=== PATIENT | female | born 1955 | race Caucasian/White ===

== ENCOUNTER 2016-11-13 13:31 | Emergency (ER) | payer OTHER ==
[~2016-11-13] VITALS: Ht 160 cm; Wt 71.7 kg
[~2016-11-13 13:31] MED LIST: ADDERALL 10 MG10 MG PO; AMPHETAMINE SAL10 MG PO; ASPIRIN EC81 M1 PO; ASPIRIN325 PO; ASPIRIN81 M2 PO; ATIVAN0.5 M1 PO; ATIVAN1 MG PO; CIPROFLOXACIN500 M1 PO; CLONAZEPAM; CLONAZEPAM 0.50.5 M1 PO; CLONAZEPAM 1 MG1 M1 PO; COLACE100 MG PO; COUMADIN 1MG TAB1 M1 PO; CRESTOR; CRESTOR20 MG PO; CYMBALTA60 MG PO; FLAGYL500 MG PO; FLEET ENEMA118 ML RC; FLEXERIL PO; KLONOPIN0.5 MG PO; LOVENOX80 MG/0.8 SQ; LYRICA225 MG PO; METHOTREXATE; METHOTREXATE 22.5 M1 PO; MOM OR; NAPROSYN500 MG PO; NORCO; OXYCODONE; OXYCODONE HCL15 MG PO; PAROXETINE HCL40 MG PO; PAXIL10 MG PO; PERCOCET 10-321 EACH PO; PREDNISONE 20 M20 MG PO; PREDNISONE 5 MG5 M1 PO; PROTONIX40 M1 PO; TRAMADOL 50 MG50 MG PO; VITAMIN D-32000 UNIT PO; VITAMIN D-40400 UNIT PO; ZOFRAN ODT4 MG PO
[2016-11-13 13:53] LABS: ABSOLUTE NEUTROPHILS 4.4 thou/uL (1.4-8.2); BASOPHILS 0.6 % (0.0-2.0); EOSINOPHILS 0.5 % (0.0-3.0); HEMATOCRIT 44.3 % (37.0-47.0); HEMOGLOBIN 15.1 gm/dL (12.0-15.0); LYMPHOCYTES 38.9 % (24.0-44.0); MANUAL DIFF NO; MCH 32.5 pg (26.0-34.0); MCHC 34.2 g/dL (28.0-37.0); MCV 95.1 fL (80.0-100.0); MONOCYTES 4.7 % (1.0-8.0); PLATELET COUNT 264 thou/uL (150-400); POLYS 55.3 % (36.0-66.0); RBC 4.66 mil/uL (4.20-5.00); RDW 13.3 % (10.5-14.5)
[2016-11-13 14:01] LABS: CALCIUM 9.4 mg/dL (8.5-10.1); CREATININE 0.8 mg/dL (0.6-1.0); POTASSIUM 3.9 mmol/L (3.5-5.1)
[2016-11-13] MEDS ORDERED: NORCO 10-325 T1 EACH PO (14:01)
[2016-11-13] MEDS ORDERED: ZOLOFT50 MG PO (14:02)
[2016-11-13 14:06] LABS: TOTAL BILIRUBIN 0.5 mg/dL (<0.1-1.0); TOTAL PROTEIN 7.9 g/dL (6.4-8.2)
[2016-11-13 14:15] LABS: URINE BLOOD 1+ (Negative); URINE COLOR YELLOW; URINE GLUCOSE-RANDOM* NEGATIVE (Negative); URINE KETONES 1+ (Negative); URINE NITRITE NEGATIVE (Negative); URINE PROTEIN (DIPSTICK) TRACE (Negative); URINE SPECIFIC GRAVITY >= 1.030 (1.003-1.035); URINE UROBILINOGEN 0.2 E.U./dl (0.2-1.0)
[2016-11-13 14:17] LABS: URINE BILIRUBIN NEGATIVE (Negative)
[2016-11-13 14:19] LABS: BACTERIA >30 Many /HPF (None Seen); CASTS None Seen /LPF (None Seen); CRYSTALS None Seen /LPF (None Seen); SQUAMOUS 4-10 Moderate /LPF (0-3); URINE RBC 0-2 Rare /HPF (0-2); URINE WBC None Seen /HPF (0-5)
[2016-11-13] MEDS ORDERED: CIPRO500 MG PO (14:35)
[2016-11-13] MEDS ORDERED: FLAGYL500 MG PO (14:35)
[2016-11-13] MEDS ORDERED: PHENERGAN 25 MG25 M1 PO (14:35)
== END 2016-11-13 14:56 | disposition home or self-care (01) ==
LOC: ER 13:31
PROVIDERS: Physician Assistant
DX: K57.92 Diverticulitis of intestine, part unspecified, without perforation or abscess without bleeding (principal); M79.7 Fibromyalgia; F41.9 Anxiety disorder, unspecified; M06.9 Rheumatoid arthritis, unspecified; F17.210 Nicotine dependence, cigarettes, uncomplicated; Z90.49 Acquired absence of other specified parts of digestive tract; Z90.710 Acquired absence of both cervix and uterus; Z85.828 Personal history of other malignant neoplasm of skin; Z88.0 Allergy status to penicillin; Z88.2 Allergy status to sulfonamides; Z88.6 Allergy status to analgesic agent; Z88.8 Allergy status to other drugs, medicaments and biological substances

== ENCOUNTER 2018-11-15 12:51 | Emergency (ER) | payer OTHER ==
[~2018-11-15] VITALS: Ht 160 cm; Wt 74.8 kg
[~2018-11-15 12:51] MED LIST changes: +CIPRO500 MG PO; +NORCO 10-325 T1 EACH PO; +PHENERGAN 25 MG25 M1 PO; +ZOLOFT50 MG PO
[2018-11-15 13:52] LABS: URINE BILIRUBIN NEGATIVE (Negative); URINE BLOOD TRACE (Negative); URINE COLOR YELLOW; URINE GLUCOSE-RANDOM* NEGATIVE (Negative); URINE KETONES NEGATIVE (Negative); URINE LEUKOCYTES-REFLEX TRACE (Negative); URINE NITRITE-REFLEX NEGATIVE (Negative); URINE PROTEIN (DIPSTICK) TRACE (Negative); URINE UROBILINOGEN 0.2 E.U./dl (0.2-1.0)
[2018-11-15] MEDS ORDERED: PERCOCET 10-321 EACH PO (13:53)
[2018-11-15 13:54] LABS: URINE CLARITY SL HAZY
[2018-11-15] MEDS ORDERED: PAXIL10 MG PO (13:54)
[2018-11-15] MEDS ORDERED: ADDERALL 10 MG10 MG PO (13:55)
[2018-11-15] MEDS ORDERED: UNICOMPLEX M TA1 TA1 PO (13:55)
--- NOTE | 2018-11-15 15:58 | EKG ---
[place] [address] [employer] [place] [address] ELECTROCARDIOGRAM REPORT Name: RAFAEL MONTGOMERY Room #: REG [facility]#: [id number] ������������������ Admission: 11/15/18 ������������������ Attend Phys: Discharge: ������������������ Date of : 55 Report #: [id number] ����������������������������������������������������������������� [id number] THIS REPORT FOR: //name// [facility] ED Test Date: 2018-11-15 Test Time: 13:43:03 Pat Name: RAFAEL MONTGOMERY Department: Room: Gender: F [employer]: [place] : 1955 Requested By: Lonny Neal Order Number: [id number] MD: Yury Mercado Measurements Intervals [place] Rate: 67 P: 55 FL: 145 QRS: 21 QRSD: 91 T: 35 QT: 394 QTc: 416 Interpretive Statements Sinus rhythm Abnormal R-wave progression, early transition Borderline T abnormalities, anterior leads Compared to ECG 03/29/2016 03:21:56 No significant changes Electronically Signed On 11-15-2018 15:58:32 CDT by Yury Mercado [email or web address] ��������������������������������������������� <ELECTRONICALLY SIGNED> ���������������������������������������� By: Yury Mercado MD ��������������������������������������������� 11/15/18 1558 1343 1343 Yury Mercado MD /AVERY
[2018-11-15 16:41] LABS: ABSOLUTE NEUTROPHILS 3.1 thou/uL (1.4-8.2); BASOPHILS 0.5 % (0.0-2.0); EOSINOPHILS 0.8 % (0.0-3.0); HEMATOCRIT 35.9 % (37.0-47.0); HEMOGLOBIN 12.1 gm/dL (12.0-15.0); LYMPHOCYTES 43.6 % (24.0-44.0); MCH 31.6 pg (26.0-34.0); MCHC 33.8 g/dL (28.0-37.0); MCV 93.3 fL (80.0-100.0); MONOCYTES 5.5 % (1.0-8.0); PLATELET COUNT 222 thou/uL (150-400); POLYS 49.6 % (36.0-66.0); RBC 3.84 mil/uL (4.20-5.00); WBC 6.2 thou/uL (4.0-11.0)
[2018-11-15 16:54] LABS: APTT 26.6 Seconds (24.5-32.8); PROTIME 9.9 Seconds (9.3-11.4)
[2018-11-15 17:03] LABS: ANION GAP 6 mmol/L (7-16); BUN 10 mg/dL (7-18); CALCIUM 8.8 mg/dL (8.5-10.1); CHLORIDE 109 mmol/L (98-107); CO2 31 mmol/L (21-32); CREATININE 0.6 mg/dL (0.6-1.0); GLUCOSE 112 mg/dL (74-106); POTASSIUM 3.7 mmol/L (3.5-5.1); SGOT 22 U/L (15-37); SGPT 20 U/L (30-65); SODIUM 146 mmol/L (136-145); TOTAL BILIRUBIN 0.2 mg/dL (<0.1-1.0); TOTAL PROTEIN 6.1 g/dL (6.4-8.2); TROPONIN-I <0.06 ng/mL (<0.06)
[2018-11-15 18:02] VITALS: BP 109/61
== END 2018-11-15 18:15 | disposition left against medical advice (07) ==
LOC: ER 12:51
PROVIDERS: Emergency Medicine; Physician Assistant
DX: R60.0 Localized edema (principal); F17.210 Nicotine dependence, cigarettes, uncomplicated; M06.9 Rheumatoid arthritis, unspecified; M79.7 Fibromyalgia; F41.9 Anxiety disorder, unspecified; Z88.0 Allergy status to penicillin; Z88.2 Allergy status to sulfonamides; Z88.8 Allergy status to other drugs, medicaments and biological substances; Z90.49 Acquired absence of other specified parts of digestive tract; Z90.710 Acquired absence of both cervix and uterus; Z85.828 Personal history of other malignant neoplasm of skin

== ENCOUNTER → 2019-01-28 | Outpatient (CLI) | payer OTHER ==
[~2019-01-28] MED LIST changes: +UNICOMPLEX M TA1 TA1 PO
== END ==
LOC: CAT 11:41
DX: Z13.6 Encounter for screening for cardiovascular disorders (principal); I25.10 Atherosclerotic heart disease of native coronary artery without angina pectoris; E78.00 Pure hypercholesterolemia, unspecified

== ENCOUNTER → 2020-07-12 | Outpatient (CLI) | payer OTHER ==
[~2020-07-12] MED LIST changes: +NEURONTIN600 MG PO; +PLAQUENIL200 MG PO; +SV CALCIUM-MAG1 EACH PO; +VITAMIN D375 MCG PO; +WELLBUTRIN XL300 MG PO
== END ==
LOC: LAB 08:53
PROVIDERS: ATTEND Specialist
DX: Z01.812 Encounter for preprocedural laboratory examination (principal); Z20.822 Contact with and (suspected) exposure to COVID-19

== ENCOUNTER → 2020-07-16 | Outpatient (CLI) | payer OTHER ==
[~2020-07-16] VITALS: Ht 157.5 cm; Wt 66.7 kg
--- NOTE | 2020-07-21 08:05 | P ---
[facility] [place] [address] PROCEDURE REPORT Name: RAFAEL MONTGOMERY Room #: REG [facility] Kwame#: [id number] Admission: 07/16/20 Attend Phys: Johnnie Puckett Discharge: Date of : 55 Report #: [id number] THIS REPORT FOR: cc: Alcon Ramirez MD, Mark S. MD McElhinney, Christian C. MD ~ DATE OF SERVICE: 07/16/2020 PROCEDURE PERFORMED: Colonoscopy with biopsies. HISTORY OF PRESENT ILLNESS: The patient is a 64-year-old female with history of colon polyps, last colonoscopy 02/25/2015, polyps were removed at that time. She also has a family history of colon cancer in her mother at age 50. She does report some loose stools at times, also has had weight loss. DESCRIPTION OF PROCEDURE: The risks and benefits of the procedure were explained to the patient, those risks including but not limited to bleeding, perforation and the risk of sedation. She understood these risks and gave informed consent. Sedation was given using propofol per anesthesia. Next, a digital rectal exam was initially performed, which was normal. Next, using a ___ Olympus colonoscope, the scope was placed in the patient's anus and advanced under direct vision to the cecum. The overall prep was good. The cecum and ileocecal valve were normal in appearance. In the ascending colon, a 4-mm sessile polyp was noted, and this was removed with cold forceps, otherwise normal. Random biopsies were also obtained today to rule out the possibility of microscopic colitis. The transverse, descending colon were normal. A few small scattered diverticula were noted in the sigmoid colon, no evidence of inflammation. In the rectum, two 3 mm sessile polyps are noted, both removed with cold forceps. On retroflexion, no abnormalities were noted. The scope was then withdrawn and the procedure terminated. The patient tolerated the procedure well. IMPRESSION: 1. Small colonic polyps. 2. Sigmoid diverticulosis. 3. Otherwise, normal colonoscopy. RECOMMENDATIONS: 1. Await biopsy results. 2. Repeat colonoscopy in 5 years. 3. If the patient has continued weight loss, consider CT scan of the chest, abdomen and pelvis. [address] [address] PROCEDURE REPORT Name: RAFAEL MONTGOMERY Room #: REG [facility].#: [id number] Admission: 07/16/20 Attend Phys: Johnnie Puckett Discharge: Date of : 55 Report #: [id number] Thank you for allowing me to participate in her care. <ELECTRONICALLY SIGNED> By: Johnnie Wild MD 07/21/20 0805 1009 1018 Johnnie Wild MD /nt
--- NOTE | 2020-07-21 08:05 | P ---
[facility] [place] [address] PROCEDURE REPORT Name: RAFAEL MONTGOMERY Room #: REG [facility] Kwame#: [id number] Admission: 07/16/20 Attend Phys: Johnnie Puckett Discharge: Date of : 55 Report #: [id number] THIS REPORT FOR: cc: Alcon Ramirez MD, Mark S. MD McElhinney, Christian C. MD ~ DATE OF SERVICE: 07/16/2020 PROCEDURE PERFORMED: Upper endoscopy with biopsies. HISTORY OF PRESENT ILLNESS: The patient is a 64-year-old female with weight loss of approximately 25-30 pounds over the last several months. Denies any abdominal pain in general. She does report decreased appetite, mild heartburn symptoms at times. No nausea or vomiting. Takes Tums on a p.r.n. basis. Denies any dysphagia. Last colonoscopy was in 2014 in which polyps were removed at that time. Last upper endoscopy in 2009. She was scheduled for colonoscopy today. We also discussed adding on an upper endoscopy because of her symptoms. DESCRIPTION OF PROCEDURE: The risks and benefits of the procedure were explained to the patient, those risks including but not limited to bleeding, perforation and the risk of sedation. She understood these risks and gave informed consent. Sedation was given using propofol per Anesthesia. Next, using a hybrid Olympus scope, the scope was placed in the patient's mouth and advanced under direct vision through the esophagus, stomach and into the second portion of the duodenum. The esophagus was normal throughout. The GE junction was normal. A small hiatal hernia was noted. Overall, the gastric mucosa was normal in the fundus and body; however, in the antrum, there was a submucosal mass noted at approximately 1 cm in size. No evidence of ulceration. Biopsies were obtained to rule out H. pylori. The pylorus was normal and patent. The duodenal bulb, first and second portion were all normal. Biopsies were obtained to rule out the possibility of celiac sprue. Scope was then withdrawn and the procedure terminated. The patient tolerated the procedure well. IMPRESSION: 1. Submucosal small mass in the antrum. 2. Small hiatal hernia. 3. Otherwise, normal upper endoscopy. RECOMMENDATIONS: 1. Await biopsy results. 2. I reviewed her previous upper endoscopy report by Dr. Abernathy in 2009 and the submucosal mass in the antrum was noted at that time. I reviewed the pictures and they appear identical in size compared to today. At that time in his path report, he recommended having an EUS done at [facility]. I do not know if this has been performed and I will discuss this with the patient. [address] [address] PROCEDURE REPORT Name: VALENTINARAFAEL KYLER Room #: REG [facility]#: [id number] Admission: 07/16/20 Attend Phys: Johnnie Puckett Discharge: Date of : 55 Report #: [id number] If EUS was not performed, may consider one in the near future for further evaluation. Plan is for colonoscopy next today. Thank you for allowing me to participate in her care. <ELECTRONICALLY SIGNED> By: Johnnie Wild MD 07/21/20 0805 1006 1032 Johnnie Wild MD /nt
--- NOTE | 2020-07-23 16:58 | PATH ---
[facility] [place] [address] PATHOLOGY RPT PROCEDURE Name: TERESA MONTGOMERY Room #: REG [facility] Derick.#: [id number] Admission: 07/16/20 Date of : 55 Discharge: Report #: [id number] Path Case #: [id number] [facility] Accession Number: [id number] . 01 Material submitted: . PART A: duodenum - DUODENAL BIOPSY R/O SPRUE PART B: gastrointestinal site - GASTRITIS BIOPSY PART C: colon - RANDOM COLON POLYP PART D: colon - ASCENDING COLON POLYP. Modifiers: ascending PART E: rectum - RECTAL POLYP . 01 Clinical history: . A. R/O SPRUE B. R/O H.PYLORI C. R/O MICROSCOPIC COLITIS . 02 Diagnosis: A. Small bowel mucosa, duodenum, rule out sprue, endoscopic biopsy: - No diagnostic abnormalities. - Negative for villous blunting or increase in intraepithelial lymphocytes. . B. Gastric mucosa, gastritis, rule out H. pylori, endoscopic biopsy: - Mild reactive gastropathy. - Negative for intestinal metaplasia or atrophy. - Negative for Helicobacter pylori (properly controlled immunohistochemical stain performed). . C. Large intestinal mucosa, random colon, rule out microscopic colitis, endoscopic biopsy: - Nonspecific reactive hyperplastic changes. - Negative for microscopic colitis. - Negative for dysplasia or malignancy. . D. Polyp, ascending colon polyp, endoscopic biopsy: - Tubular adenoma. - Negative for high-grade dysplasia. . E. Polyp x 2, rectal polyp, endoscopic biopsy: - Hyperplastic polyp. - Negative for dysplasia. (IUV:pit 07/19/2020) [facility] 07/19/2020 1326 Local . 02 Comment: C. Sections of colon biopsy tissues show crypts at regular intervals and no increase in cellularity of lamina propria. There are no granulomas. [address] [address] PATHOLOGY RPT PROCEDURE Name: TERESA MONTGOMERY KYLER [facility] [id number] Admission: 07/16/20 Date of : 55 Discharge: Report #: [id number] Path Case #: [id number] The collagen layer underneath the epithelium is not thickened. There is no distortion in crypt architecture as well. There is no evidence of dysplasia. (IUV:pit 07/19/2020) . 02 Electronically signed: . Andreina Torerz MD, Pathologist NPI- [id number] . 01 Gross description: . A. Received in formalin labeled "Teresa Montgomery, BX duodenal rule out sprue" are multiple solitario-brown soft tissue fragments measuring in aggregate 1.3 x 0.6 x 0.1 cm. The specimen is submitted entirely in A1. . B. Received in formalin labeled "GhanshyamTeresa, BX gastritis rule out H. pylori" are multiple solitario-brown soft tissue fragments measuring in aggregate 0.5 x 0.4 x 0.1 cm. The specimen is submitted entirely in B1. . C. Received in formalin labeled "Ghanshyam, Teresa, BX random colon rule out microscopic colitis" are multiple solitario-brown soft tissue fragments measuring in aggregate 1.7 x 0.4 x 0.1 cm. The specimen is submitted entirely in C1. . D. Received in formalin labeled "Ghanshyam, Teresa, BX ascending colon polyp" are two solitario-brown soft tissue fragments measuring in aggregate 0.3 x 0.3 x 0.1 cm. The specimen is submitted entirely in D1. . E. Received in formalin labeled "Teresa Montgomery, BX rectal polyp x2" are multiple solitario-brown soft tissue fragments measuring in aggregate 0.7 x 0.5 x 0.1 cm. The specimen is submitted entirely in E1. ([facility]; 07/17/2020) [facility] 07/17/2020 1205 [facility] . 02 Pathologist provided ICD-10: K31.9, D12.2, K62.1 . 02 CPT . 763095, 343858, 351427, 658062, 237347, [id number] Specimen Comment: A courtesy copy of this report has been sent to [phone], [phone] Specimen Comment: [id number] Specimen Comment: Report sent to / DR TRUJILLO Specimen Comment: A duplicate report has been generated due to demographic updates. Performed at: [address], [place], [place] [id number] MD Leonides Diggs MD Phone: [phone] Performed at: [address] [address] PATHOLOGY RPT PROCEDURE Name: TERESA MONTGOMERY Room #: REG [facility] M.R.#: [id number] Admission: 07/16/20 Date of : 55 Discharge: Report #: [id number] Path Case #: [id number] [address] [id number] MD Andreina Torrez MD Phone: [phone]
== END | disposition home or self-care (01) ==
LOC: GI 07:58
PROVIDERS: ATTEND Specialist
DX: K57.30 Diverticulosis of large intestine without perforation or abscess without bleeding (principal); D12.2 Benign neoplasm of ascending colon; K62.1 Rectal polyp; R63.4 Abnormal weight loss; Z86.010 Personal history of colon polyps; K44.9 Diaphragmatic hernia without obstruction or gangrene; Z88.0 Allergy status to penicillin; Z80.0 Family history of malignant neoplasm of digestive organs; K31.89 Other diseases of stomach and duodenum; M79.7 Fibromyalgia; M06.9 Rheumatoid arthritis, unspecified; F32.9 Major depressive disorder, single episode, unspecified; F41.9 Anxiety disorder, unspecified; Z90.710 Acquired absence of both cervix and uterus; E78.5 Hyperlipidemia, unspecified; F17.210 Nicotine dependence, cigarettes, uncomplicated; J44.9 Chronic obstructive pulmonary disease, unspecified; G47.33 Obstructive sleep apnea (adult) (pediatric); K29.70 Gastritis, unspecified, without bleeding; D64.9 Anemia, unspecified; Z88.8 Allergy status to other drugs, medicaments and biological substances
CPT/HCPCS: 62110; 62900

== ENCOUNTER → 2021-03-10 | Outpatient (CLI) | payer OTHER | LOC: RAD 14:36 | PROVIDERS: ATTEND Internal Medicine Rheumatology | DX: Z12.31 Encounter for screening mammogram for malignant neoplasm of breast (principal) ==